=== PATIENT | female | born 1970 | race African-American/Black ===

== ENCOUNTER 2020-01-26 22:06 | Emergency (ER) | payer OTHER ==
[~2020-01-26] VITALS: Ht 162.6 cm; Wt 65.8 kg
[2020-01-26] MEDS ORDERED: IV NORMAL SALINE 1000 ML BAG IV ONE (22:15)
[2020-01-26 23:00] LABS: *BILIRUBIN,URIN NEGATIVE (NEGATIVE); *BLOOD, URINE 1+ (NEGATIVE); *COLOR,URINE YELLOW (YELLOW); *KETONES,URINE NEGATIVE (NEGATIVE); *UROBILINOGEN,URINE 0.2 E.U./dl (NORMAL); LEUKOCYTE ESTERASE ,URINE 1+ (NEGATIVE); NITRITE, URINE NEGATIVE (NEGATIVE); PH,URINE 5.5 (5.0-8.0); UGLUCOSE NEGATIVE (NEGATIVE)
[2020-01-26 23:03] LABS: BASOPHILS # (AUTO) 0.1 K/uL (0.0-8.0); EOSINOPHILS % (AUTO) 0.4 % (0.0-7.0); HEMATOCRIT 31.1 % (31.2-41.9); HEMOGLOBIN 10.2 g/dL (10.9-14.3); LYMPHOCYTES # (AUTO) 1.6 K/uL (20.0-40.0); LYMPHOCYTES % (AUTO) 30.7 % (20.5-51.5); MEAN CORPUSCULAR HEMOGLOBIN 29.6 uug (24.7-32.8); MEAN CORPUSCULAR HGB CONC 33 g/dL (32.3-35.6); MEAN CORPUSCULAR VOLUME 90.6 fL (75.5-95.3); MONOCYTES # (AUTO) 0.5 K/uL (2.0-10.0); MONOCYTES % (AUTO) 9.3 % (0.0-11.0); NEUTROPHILS % (AUTO) 58.6 % (38.5-71.5); PLATELET COUNT (AUTO) 230 K/uL (179-408); RED BLOOD CELL COUNT(AUTO) 3.43 MIL/uL (3.63-4.92); WHITE BLOOD COUNT (AUTO) 5.1 K/uL (3.8-11.8)
[2020-01-26 23:04] LABS: *CLARITY,URINE HAZY (CLEAR)
[2020-01-26 23:07] LABS: CARBON DIOXIDE 24 mmol/L (21-32); CHLORIDE 107 mmol/L (98-107); CREATININE 0.7 mg/dL (0.6-1.3); GLUCOSE 145 mg/dL (74-106); UREA NITROGEN, BLOOD 11 mg/dL (7-18)
[2020-01-26 23:08] LABS: ETHANOL 517 MG/DL (0-0)
[2020-01-26 23:10] LABS: POTASSIUM 2.7 mmol/L (3.5-5.1)
[2020-01-26 23:12] LABS: THYROID STIMULATING HORMONE 1.987 mIU/mL (0.358-3.740)
[2020-01-26 23:14] LABS: *AMPHETAMINE, URINE NEGATIVE (NEGATIVE); *BARBITURATE, URINE NEGATIVE (NEGATIVE); *CANNABINOID, URINE NEGATIVE (NEGATIVE); *COCCAINE, URINE NEGATIVE (NEGATIVE); *OPIATE, URINE NEGATIVE (NEGATIVE); *PHENCYCLIDINE SCREEN,URINE NEGATIVE (NEGATIVE); BACTERIA,URINE MANY /HPF (NONE SEEN); SQUAMOUS EPITHELIAL CELL,UR FEW /HPF (NONE SEEN); WBC,URINE 50-80 /HPF (0-3)
[2020-01-26] MEDS ORDERED: POTASSIUM CHLORIDE 20 MEQ TAB.PRT.SR PO ONE (23:15)
[2020-01-26 23:17] LABS: ACETAMINOPHEN < 2.0 ug/mL (10-30); ALANINE AMINOTRANSFERASE 74 U/L (14-59); ALKALINE PHOSPHATASE 129 U/L (50-136); ASPARTATE AMINOTRANSFERASE 143 U/L (15-37); BILIRUBIN,DIRECT 0.1 mg/dL (0.0-0.2); BILIRUBIN,TOTAL < 0.1 mg/dL (0.2-1.0); TOTAL PROTEIN, SERUM 6.7 g/dL (6.4-8.2)
[2020-01-26] MEDS ORDERED: POTASSIUM CHLORIDE 100 ML ONE (23:46)
--- NOTE | 2020-01-26 23:47 | NUR ---
Patient is resting comfortably in bed with eyes closed
[2020-01-26] MEDS: POTASSIUM CHLORIDE 50 ML IV SCH (23:50)
[2020-01-27] MEDS: POTASSIUM CHLORIDE 50 ML IV SCH (00:52)
--- NOTE | 2020-01-27 01:00 | NUR ---
Patient IVF infusing site remains patent. Will continue to monitor.
[2020-01-27] MEDS ORDERED: CEFTRIAXONE /D5W 50ML IVPB **ER PYXIS IV ONE (05:59)
[2020-01-27] MEDS ORDERED: CEFTRIAXONE 1 G in IV DEXTROSE 5% 50 ML IV ONE (06:00)
[2020-01-27] MEDS ORDERED: IV NORMAL SALINE 1000 ML BAG IV ONE (06:15)
--- NOTE | 2020-01-27 07:00 | NUR ---
received hand off and SBAR from outgoing day shift pt is ra asleep but easily rousable IV site intact to L hand g20 denies pain pending social media marketer eval for placement
--- NOTE | 2020-01-27 10:15 | NUR ---
Litigation Legal Assistant (Carlotta) called back and will come in to evaluate pt Pt is RA ambulatory and able to use bathroom Pt able to tolerate 100% of breakfast NAD MOnitored accordingly kept warm dry and comfortable
--- NOTE | 2020-01-27 10:31 | NUR ---
MURIEL Laguerre at bedside consulting patient.
[2020-01-27] MEDS ORDERED: FOLIC ACID/VITAMIN B COMP W-C TABLET PO SCH (10:45)
[2020-01-27] MEDS ORDERED: THIAMINE HCL 100 MG TABLET PO ONE (10:45)
--- NOTE | 2020-01-27 11:26 | NUR ---
Patient given written and verbal discharge instructions. Patient verbalizes understanding of instructions. Patient is ambulatory with steady gait. Refuses offer of residential placement. Patient given list of available shelters in surrounding area. homeless discharge waiver signed all belongings w/ pt
[2020-01-27 11:28] VITALS: BP 126/74
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
== END 2020-01-27 11:29 | disposition home or self-care (01) ==
LOC: ER 22:06
DX: F10.129 Alcohol abuse with intoxication, unspecified (principal); Y90.8 Blood alcohol level of 240 mg/100 ml or more; R41.82 Altered mental status, unspecified; R40.2420 Glasgow coma scale score 9-12, unspecified time; N39.0 Urinary tract infection, site not specified; B96.89 Other specified bacterial agents as the cause of diseases classified elsewhere; Z59.0 Homelessness; E87.6 Hypokalemia
CPT/HCPCS: 36415; 70450; 71045; 80048; 80076; 80307 ×2; 80329; 81001; 82140; 84443; 84484; 85025; 85730; 87086; 93005; 96361; 96365; 99285; G0480; J0696; J3480; 70030-TC; 87077; A4663; C1758; J7030